=== PATIENT | male | born 1945 | race Caucasian/White ===

== ENCOUNTER 2023-03-21 12:58 | Emergency (ER) | payer MEDICARE, MEDICAID ==
[~2023-03-21] VITALS: Ht 182.9 cm; Wt 94.0 kg
[~2023-03-21 12:58] MED LIST: ACET-2708 PO; ASPIRIN; BUSP10TA3; CYCL-108; DOXA2TAB2; DULO60CA45; ESZO1TAB11; LISI5TAB; LORA0.5T2; LOVA40TA73; METFORMIN; METO-385; NITR0.4T; OMEP40CA20; SULF1TAB48 MT; TAMS0.4C31; VALA100044 MT; [UNRECOGNIZED DRUG - CODE]
[2023-03-21 13:12] VITALS: BP 139/73
[2023-03-21] MEDS ORDERED: CLOT15CR27 TP (14:31)
== END 2023-03-21 18:06 | disposition home or self-care (01) ==
LOC: ER 13:05
DX: N47.6 Balanoposthitis (principal)
CPT/HCPCS: 99281

== ENCOUNTER 2023-05-19 14:42 | Emergency (ER) | payer MEDICARE, MEDICAID ==
[~2023-05-19] VITALS: Ht 182.9 cm; Wt 95.2 kg
[~2023-05-19 14:42] MED LIST changes: +CLOT15CR27 TP
[2023-05-19 14:48] VITALS: O2SAT 98
[2023-05-19] MEDS ORDERED: ACET-2708 PO (18:40)
[2023-05-19 18:50] VITALS: BP 120/62; PULSE 64; RESP 18; TEMP 97.9
== END 2023-05-19 18:51 | disposition home or self-care (01) ==
LOC: ER 15:08
DX: M17.11 Unilateral primary osteoarthritis, right knee (principal); Z79.899 Other long term (current) drug therapy
CPT/HCPCS: 73562; 99283

== ENCOUNTER 2023-12-22 06:34 | Emergency (ER) | payer BC, MEDICAID ==
[~2023-12-22] VITALS: Ht 182.9 cm; Wt 95.2 kg
[2023-12-22 07:01] VITALS: TEMP 98.5; O2SAT 98
[2023-12-22 09:00] VITALS: BP 130/68; PULSE 67; RESP 16
[2023-12-22] MEDS ORDERED: LORAZEPAM 1MG TABLET PO ONE (09:00)
[2023-12-22] MEDS ORDERED: KETOROLAC 60MG/2ML VIAL IM ONE (09:00)
[2023-12-22 10:34] LABS: CLARITY URINE CLEAR (CLEAR); COLOR URINE YELLOW (YELLOW); GLUCOSE URINE NEGATIVE (NEGATIVE); KETONES URINE NEGATIVE (NEGATIVE); LEUKOCYTE ESTERASE URINE NEGATIVE (NEGATIVE); NITRITE URINE NEGATIVE (NEGATIVE); OCCULT BLOOD URINE NEGATIVE (NEGATIVE); PH URINE 6.5 (4.5-8.0); PROTEIN URINE NEGATIVE (NEGATIVE); SPECIFIC GRAVITY URINE 1.013 (1.005-1.030); UROBILINOGEN URINE 0.2 E.U./dL (0.2-1.0)
[2023-12-22] MEDS ORDERED: IBUP-2029 MT (10:44)
[2023-12-22] MEDS ORDERED: CYCL5TAB MT (10:44)
== END 2023-12-22 12:01 | disposition home or self-care (01) ==
LOC: ER 06:34
DX: G89.29 Other chronic pain (principal); M54.50 Low back pain, unspecified; I10 Essential (primary) hypertension; Z79.899 Other long term (current) drug therapy; Z68.28 Body mass index [BMI] 28.0-28.9, adult
CPT/HCPCS: 99284; 81003; 72100; 96372; J1885

== ENCOUNTER 2025-11-01 12:24 | Emergency (ER) | payer BC, MEDICARE ==
[~2025-11-01] VITALS: Ht 175.3 cm; Wt 85.0 kg
[~2025-11-01 12:24] MED LIST changes: +CYCL5TAB3 MT; +IBUP-1455 MT
[2025-11-01 12:31] VITALS: BP 125/63; TEMP 36.8; O2SAT 98
[2025-11-01 12:36] VITALS: PULSE 78; RESP 14; O2SAT 98
[2025-11-01] MEDS: ACETAMINOPHEN 325MG TABLET PO ONE (13:08)
[2025-11-01] MEDS ORDERED: BO1 TP (14:19)
== END 2025-11-01 15:03 | disposition home or self-care (01) ==
LOC: ER 13:43
DX: S09.90XA Unspecified injury of head, initial encounter (principal); E78.00 Pure hypercholesterolemia, unspecified; I10 Essential (primary) hypertension; N40.0 Benign prostatic hyperplasia without lower urinary tract symptoms; M54.2 Cervicalgia; Z79.624 Long term (current) use of inhibitors of nucleotide synthesis; W19.XXXA Unspecified fall, initial encounter; Y93.89 Activity, other specified; Y92.89 Other specified places as the place of occurrence of the external cause; Y99.8 Other external cause status
CPT/HCPCS: 99284